=== PATIENT | female | born 1965 | race Caucasian/White ===

== ENCOUNTER 2017-05-22 15:05 | Emergency (ER) | payer OTHER, BC | END 2017-05-22 16:48 | disposition home or self-care (01) | LOC: E/R 16:48 | DX: L30.9 Dermatitis, unspecified (principal) | CPT/HCPCS: 99283; Z7502 ==

== ENCOUNTER 2017-12-21 19:04 | Emergency (ER) | payer OTHER ==
[2017-12-21] MEDS: KETOROLAC 60 MG INJ IM (21:07)
== END 2017-12-21 21:48 | disposition home or self-care (01) ==
LOC: FTE 21:48
DX: S16.1XXA Strain of muscle, fascia and tendon at neck level, initial encounter (principal); S40.019A Contusion of unspecified shoulder, initial encounter; S39.012A Strain of muscle, fascia and tendon of lower back, initial encounter; V49.40XA Driver injured in collision with unspecified motor vehicles in traffic accident, initial encounter
CPT/HCPCS: 73030; 73030-50; 81025; 96372; 99284-25